=== PATIENT | female | born 1995 | race American Indian/Alaskan Native ===

== ENCOUNTER 2019-11-19 21:30 | Emergency (ER) | payer SELFPAY ==
[2019-11-19 23:25] VITALS: BP 148/104
[2019-11-20 00:28] LABS: Bilirubin,Urine NEG (Negative); Blood,Urine NEG (Negative); Color,Urine Yellow (Yellow); Mucus,Urine 1+ /HPF; Protein,Urine <15 mg/dL mg/dL (Negative); Urobilinogen,Urine < 2.0 mg/dL (<2.0)
[2019-11-20 00:34] LABS: HCG Qualitative,Urine Negative (Negative)
== END 2019-11-20 00:45 | disposition left against medical advice (07) ==
LOC: ED 21:30
DX: R10.9 Unspecified abdominal pain (principal); Z53.21 Procedure and treatment not carried out due to patient leaving prior to being seen by health care provider
CPT/HCPCS: 81001; 81025